=== PATIENT | female | born 1935 ===

== ENCOUNTER 2017-05-08 21:06 | Emergency (ER) | payer MEDICARE, MEDICAID ==
[2017-05-08 21:15] VITALS: BP 161/63; PULSE 76; RESP 18; TEMP 97.3; O2SAT 94
--- NOTE | 2017-05-08 21:26 | ED PDOC ---
Upper Extremity Pain/Injury Time Seen by Provider: 05/08/17 21:15 Chief Complaint (Nursing): Upper Extremity Problem/Injury Chief Complaint (Provider): Upper Extremity/Lower Back pain due to injury History Per: Family, [employer] (family member) History/Exam Limitations: no limitations Onset/Duration Of Symptoms: Days (5) Current Symptoms Are (Timing): Still Present Additional Complaint(s): Patient is 82 y/o female presenting to the ED complaining of pain in left hand and lower back since falling from her bed 5 days ago. Family members indicate bed was about 3 feet high and patient received bruising to palm of her left hand due to her bracelet. Pain is described as radiating from palm to upper arm , with associated numbness. Family members indicate patient has taken Tylenol for symptoms, and last took it at 1400. No XRays taken and no medical problems or allergies noted. Lastly Pt admits that she has a history of uterine prolapse that was made worse from the fall. no pain or vaginal bleeding at this time PCP: Ben Maharaj Past Medical History Reviewed: Historical Data, Nursing Documentation, Vital Signs Vital Signs: Last Vital Signs Temp 97.3 F L 05/08/17 21:10 Pulse 76 05/08/17 21:10 Resp 18 05/08/17 21:10 BP 161/63 H 05/08/17 21:10 Pulse Ox 94 L 05/08/17 21:10 - Medical History PMH: No Chronic Diseases - Family History Family History: States: No Known Family Hx - Social History Current smoker - smoking cessation education provided: No Alcohol: None Drugs: Denies - Allergies Allergies/Adverse Reactions: Allergies Allergy/AdvReac Type Severity Reaction Status Date / Time No Known Allergies Allergy Verified 05/08/17 21:09 Review of Systems ROS Statement: Except As Marked, All Systems Reviewed And Found Negative Musculoskeletal: Positive for: Back Pain (lower back), Hand Pain (left palm) Skin: Positive for: Bruising (left palm) Physical Exam - Reviewed Nursing Documentation Reviewed: Yes Vital Signs Reviewed: Yes - Physical Exam Appears: Positive for: No Acute Distress Head Exam: Positive for: ATRAUMATIC, NORMAL INSPECTION, NORMOCEPHALIC Neck: Positive for: Normal, Supple Pelvic Exam: Positive for: Other ((+) uterine prolapse) Back: Positive for: Vertebral Tenderness (tenderness to coccyx) Extremity: Positive for: Tenderness (left palm), Other (Ecchymosis to left thenar eminence) Neurologic/Psych: Positive for: Alert, Oriented (x3) - ECG O2 Sat by Pulse Oximetry: 94 (RA) Pulse Ox Interpretation: Normal Medical Decision Making Medical Decision Making: Time: 2125 Impression: contusion status post fall, rule out fractures Plan: -CT lumbar -XR hand 2 views LT -XR forearm left -XR shoulder left -XR wrist left 3 views -Acetaminophen 650mg PO 2207 XRays as reviewed by provider indicate no fractures or dislocations CT: No acute fractures Pt doing well on re-eval rpeorts pain improved after Tylenol. asking to go home. Scribe Attestation: Documented by Zenon Durbin, acting as a scribe for Christin Alicea Provider Scribe Attestation: All medical record entries made by the Scribe were at my direction and personally dictated by me. I have reviewed the chart and agree that the record accurately reflects my personal performance of the history, physical exam, medical decision making, and the department course for this patient. I have also personally directed, reviewed, and agree with the discharge instructions and disposition Disposition - Clinical Impression Clinical Impression: Uterine prolapse, Back pain, Arm contusion - Disposition [facility] Disposition Time: 23:24 Condition: STABLE Instructions: Uterine Prolapse (ED), Back Pain (ED), Contusion in Adults (ED) Forms: [employer] (Iraqi) Print Language: MOLDOVAN
--- NOTE | 2017-05-08 23:13 | CT ---
EXAM: CT Lumbar Spine Without Intravenous Contrast EXAM DATE/TIME: 05/08/2017 9:26 PM CLINICAL HISTORY: 82 years old, female; Pain and injury or trauma; Fall; Initial encounter; Laceration; Without foreign body; Other: Lbp sacrum/ coccyx pain; Injury date: Today; Injury details: S/P falling off bed. Lbp sacrum/ coccyx pain. Left side most pain; Additional info: Pain S/P fall TECHNIQUE: Axial computed tomography images of the lumbar spine without intravenous contrast. All CT scans at this facility use one or more dose reduction techniques, viz.: automated exposure control; ma/kV adjustment per patient size (including targeted exams where dose is matched to indication; i.e. head); or iterative reconstruction technique. Coronal and sagittal reformatted images were created and reviewed. COMPARISON: No relevant prior studies available. FINDINGS: Scoliosis. There are extensive degenerative changes in the osseous structures. There is joint space narrowing at all levels. Endplate sclerosis is present. No spondylolysis. No acute fractures. Ectatic infrarenal aorta measuring 3 cm in diameter. No periaortic fluid. Extensive uterine calcification presumably degenerated fibroids. IMPRESSION: No acute fractures.
--- NOTE | 2017-05-09 10:52 | RAD ---
PROCEDURE: Radiographs of the Left Forearm HISTORY: pain s/p fall COMPARISON: None available. TECHNIQUE: Frontal and lateral views obtained. FINDINGS: BONES: No fracture or destructive lesion. Diffuse osteopenia. JOINT SPACES: Unremarkable. OTHER FINDINGS: None. IMPRESSION: Diffuse osteopenia. Otherwise unremarkable radiographs of the left forearm.
--- NOTE | 2017-05-09 10:55 | RAD ---
PROCEDURE: Left Hand Radiographs. HISTORY: pain s/p fall COMPARISON: None. FINDINGS: BONES: Diffuse osteopenia is noted. . No fracture. JOINTS: Normal. No osteoarthritic changes. SOFT TISSUES: Normal. OTHER FINDINGS: None. IMPRESSION: No evidence of acute fracture or dislocation.
--- NOTE | 2017-05-09 11:00 | RAD ---
PROCEDURE: Left Wrist Radiographs. HISTORY: pain s/p fall COMPARISON: None. FINDINGS: BONES: Diffuse osteopenia. No evidence of acute fracture JOINTS: Normal. No dislocation. SOFT TISSUES: Normal. OTHER FINDINGS: None. IMPRESSION: Diffuse osteopenia. No evidence of acute fracture or dislocation.
--- NOTE | 2017-05-09 11:04 | RAD ---
PROCEDURE: Radiographs of the Left Shoulder HISTORY: pain s/p fall COMPARISON: No prior. FINDINGS: BONES: Normal. No fracture. JOINTS: Normal. Glenohumeral and acromioclavicular joints preserved. No osteoarthritis. SOFT TISSUES: Normal. OTHER FINDINGS: None. IMPRESSION: Diffuse osteopenia. No evidence of acute fracture or dislocation
== END 2017-05-08 23:25 | disposition home or self-care (01) ==
LOC: H.ER 21:06
DX: S40.022A Contusion of left upper arm, initial encounter (principal); W06.XXXA Fall from bed, initial encounter; Y93.89 Activity, other specified; Y92.003 Bedroom of unspecified non-institutional (private) residence as the place of occurrence of the external cause; M54.5 Low back pain; N81.4 Uterovaginal prolapse, unspecified